=== PATIENT | female | born 1980 | race Caucasian/White ===

== ENCOUNTER 2019-07-14 21:20 | Emergency (ER) | payer MEDICAID ==
[~2019-07-14] VITALS: Ht 154.9 cm; Wt 85.3 kg
[2019-07-14 21:25] VITALS: BP 140/90
--- NOTE | 2019-07-14 21:25 | NUR ---
TO BED # 03 AMBULATORY
--- NOTE | 2019-07-14 21:42 | NUR ---
39 YO F BIB [employer] PRESENTS TO ED C/O ANXIETY S/SX OFF AND ON X 2 MONTHS. PT STATES "I FEEL PANICKY AND NERVOUS LIKE I DON'T KNOW WHAT TO DO AND MY BODY FEELS HEAVY". PT STATES IT HAPPENED WHILE SHE WAS DRIVING TODAY @ AROUND 1900. DENIES PAIN, SOB, NVD. -- PT AWAKE, A/O X 4. APPEARS NERVOUS. CALM, COOPERATIVE. ANSWERS QUESTIONS WITHOUT DIFFICULTY. SPEECH CLEAR. -- SKIN PINK, WARM, DRY. BREATHING EVEN, UNLABORED. PMH-- LUPUS RX-- PREDNISONE, PLAQUENIL, MOTRIN NEEDED
--- NOTE | 2019-07-14 21:44 | NUR ---
Dr. Rhodes examining patient.
[2019-07-14] MEDS ORDERED: LORazepam 1 MG TAB PO ONE (22:20)
[2019-07-14 22:50] VITALS: BP 140/90
== END 2019-07-14 22:50 | disposition home or self-care (01) ==
LOC: MED 21:20
DX: F41.9 Anxiety disorder, unspecified (principal)
CPT/HCPCS: 99284